=== PATIENT | female | born 1955 | race Caucasian/White ===

== ENCOUNTER 2019-09-16 06:42 | Emergency (ER) | payer OTHER, SELFPAY ==
[2019-09-16 06:49] VITALS: BP 146/89; PULSE 97; RESP 16; O2SAT 98; BMI 24.3
--- NOTE | 2019-09-16 06:58 | CT_ITS ---
PROCEDURE: CT CERVICAL SPINE WO CON CLINICAL INDICATION: pain in neck and right arm COMPARISON: No exams were available for comparison TECHNIQUE: Axial images obtained with sagittal and coronal reformats. All CT scans at the facility use one or more dose reduction, viz: automated exposure control, ma/kV adjustment per patient size (including targeted exams where dose is matched to indication, i.e. head), or iterative reconstruction technique. Axial spiral CT scanning performed of the cervical spine beginning at the base of the skull and continuing to the upper T-spine. 3-D multiplanar reconstruction with 3-D manipulation of volumetric data set in image rendering was completed by the radiologist and/or technologist with the supervision of the radiologist on independent workstation. FINDINGS: No fracture nor subluxation is evident. Normal prevertebral soft tissues. There is some straightening of the normal cervical lordosis.1. Facets, neural foramen and vertebral bodies intact and unremarkable. There is mild disc space narrowing at the C5-6 and C6-7 levels. Normal C1/C2 relationships. Apices of lungs are clear with no acute findings. There is a borderline enlarged and somewhat heterogenic appearing thyroid gland. IMPRESSION: Findings of mild muscle spasm along with findings of mild degenerative disc disease C5-6 and C6-7 Dictated by: Dr. Merrick Mckee MD 09/16/2019 08:[address] Merrick Mckee MD in [place] 09/16/2019 08:18
--- NOTE | 2019-09-16 07:50 | PC.NURSE ---
pt states she took 800mg motrin at 5am today. toradol not given
--- NOTE | 2019-09-16 08:26 | [facility].EDGENADL ---
ED Disposition Clinical Impression: Cervicalgia Disposition: Home, Self-Care Condition on Discharge: Good Instructions: DI for Acute Pain -- Adult, Neck Pain (Alternative Therapy) Prescriptions: Nabumetone 750 mg PO BID 10 Days #20 tab Prescription Printed Tizanidine HCl [Zanaflex 4mg tablet] 4 mg PO TID 10 Days #30 tab Prescription Printed Referrals: PCP,No [Primary Care Provider] - - Critical Care Critical Care Time: No Attestation: On 09/16/19, the high probability of a clinically significant, sudden or life threatening deterioration of the following system(s) required my full and direct attention, intervention and personal management. The time I documented below is in addition to time spent performing reported procedures but includes the following listed in this critical care notation. Medical Decision Making - Medical Records Medical records reviewed: Yes: I reviewed the patient's medical records. - Tai Inquiry Pt receiving controlled substance: No Vital Signs: 09/16/19 06:49 Pulse Rate [Right Brachial] 97 H Respiratory Rate 16 Blood Pressure [Right Arm] 146/89 H Blood Pressure Mean [Right Arm] 108 Blood Pressure Source [Right Arm] Automatic Cuff Blood Pressure Position [Right Arm] Sitting 02 Sat by Pulse Oximetry 98 Oxygen Delivery Method Room Air - Lab Data Lab results reviewed: Yes: I reviewed the patient's lab results. Orders (Tests/Meds): ED MEDICATIONS Discontinued Medications Generic Name Dose Route Start Last Admin Trade Name Freq PRN Reason Stop Dose Admin Ketorolac Tromethamine 60 mg 09/16/19 07:29 09/16/19 07:34 Toradol 60mg/2ml Vial IM 09/16/19 07:30 Not Given ONCE ONE Ketorolac Tromethamine 60 mg 09/16/19 07:42 09/16/19 07:49 Toradol 60mg/2ml Vial IM 09/16/19 07:43 Not Given ONCE ONE Lidocaine HCl 10 ml 09/16/19 08:12 09/16/19 08:14 Lidocaine 1% 10ml Mdv IJ 09/16/19 08:13 10 ml ONCE ONE Administration Triamcinolone Acetonide 80 mg 09/16/19 08:11 09/16/19 08:12 Kenalog 40mg/Ml Vial IM 09/16/19 08:12 80 mg ONCE ONE Administration - CT Data CT Scan: C-Spine Time Received: 14:[address] Reviewed: Yes: I have viewed the radiologist's interpretation Preliminary Findings: Normal/NAD General Adult HPI - General Chief complaint: PAIN Stated complaint: Back and neck pain Time Seen by Provider: 09/16/19 08:00 Mode of Arrival: Ambulatory Limitations: No Limitations Description of Symptoms (Recalled from ER Triage Doc. by RN): Patient reports upper back, neck and right arm pain. Patient reports on August 30 she fell onto her right elbow causing some pain, that seemed to ease. Patient reports on thursday she went and got a massage on thursday which seemed ok until thursday when she started to experience the neck pain again. Then patient reports she drove from [place] to or yesterday which seemed to aggravate the pain even more and this morning when she woke up she couldnt stand the pain any longer. - History of Present Illness HPI narrative: 64-year-old female presents the emergency department with neck pain. She states that she had an injury on 30 August which was a fall no pain secondary to the fall except for some right elbow pain but she states right now that is minimal not an issue. The next few days she she was doing okay but she started develop some neck pain and also some shoulder blade pain as well on the right side. She also states that last Thursday she did have a massage done and then 2 days later after the massage she presented in acute pain after presenting here in [place] from traveling from [place]. She describes this pain as a sharp sensation on the right side of her neck with radiation down to the right shoulder. Patient rates her pain 6 out of 10. She states alleviating factors include nonsteroidal anti-inflammatory drugs such as ibuprofen and rest and exacerbating factors include movement. Patient has no n
[2019-09-16 08:50] VITALS: BP 140/72; PULSE 88; RESP 16; TEMP 36.6; O2SAT 98
== END 2019-09-16 08:52 | disposition home or self-care (01) ==
PROVIDERS: Emergency Provider Emergency Medicine
DX: M54.2 Cervicalgia (principal); Z88.0 Allergy status to penicillin; Z88.2 Allergy status to sulfonamides
CPT/HCPCS: 20552; 72125; 96372; 99282